=== PATIENT | male | born 1985 | race Caucasian/White ===

== ENCOUNTER → 2025-07-01 14:01 | Outpatient (CLI) | payer OTHER, SELFPAY ==
--- NOTE | 2025-07-01 14:07 | DI.RAD.S_ITS ---
PROCEDURE: XR CERVICAL SPINE 4V OR 5V INDICATIONS: NECK PAIN TECHNIQUE: 5 views of the cervical spine acquired. COMPARISON: None. FINDINGS: Bones: No fractures or dislocations to the T1 level. Oblique images demonstrate no bony foraminal stenoses. Minimal scattered areas of left foraminal narrowing. Soft tissues: No prevertebral soft tissue swelling. IMPRESSION: Minimal areas of foraminal narrowing, possibly positional. Otherwise, no significant degenerative change. Dictated by: Naa Vinson M.D. on 07/01/2025 at 15:35 Approved by: Naa Vinson M.D. on 07/01/2025 at 15:36
--- NOTE | 2025-07-01 14:51 | DI.RAD.S_ITS ---
PROCEDURE: XR LUMBAR SPINE MIN 4V INDICATIONS: BACK PAIN TECHNIQUE: 5 views of the lumbar spine were acquired, including bilateral oblique views. COMPARISON: None. FINDINGS: Bones: 5 nonrib-bearing vertebrae are present. There is minimal scattered retrolisthesis. Questionable minimal foraminal narrowing L5-S1. No vertebral body compression fractures. No suspicious bony lesions. Soft tissues: Overlying bowel gas pattern is normal. No suspicious soft tissue calcifications. Oblique images: No pars defects. IMPRESSION: Minimal questionable foraminal narrowing L5-S1. Dictated by: Naa Vinson M.D. on 07/01/2025 at 15:36 Approved by: Naa Vinson M.D. on 07/01/2025 at 15:37
== END ==
LOC: RAD 14:05
PROVIDERS: Referring Provider Physical Medicine & Rehabilitation; Visit Provider Physical Medicine & Rehabilitation
DX: M54.2 Cervicalgia (principal); M54.9 Dorsalgia, unspecified
CPT/HCPCS: 72050; 72110

== ENCOUNTER → 2025-07-15 15:43 | Outpatient (CLI) | payer OTHER, SELFPAY ==
--- NOTE | 2025-07-15 15:44 | DI.MRI.S_ITS ---
PROCEDURE: MR CERVICAL SPINE WO CON INDICATIONS: progressive cervical radiculopathy P s/p trauma TECHNIQUE: Noncontrast sagittal T1 spin echo and T2 fast spin echo, sagittal STIR, foraminal oblique sagittal T2 fast spin echo, and axial gradient echo or T2 fast spin echo through the cervical spine. COMPARISON: None. FINDINGS: Image quality: Excellent. Alignment and Curvature: There is normal bony alignment. Bone Marrow: Marrow demonstrates normal overall signal. Spinal Cord: Normal spinal cord size. Short-segment prominence of the central canal at C4 without adjacent cord compression. No cerebellar tonsillar herniation. Paraspinous Soft Tissues: No paravertebral masses. Prevertebral soft tissues are normal in thickness. C2-C3: Normal appearance. C3-C4: No spinal canal stenosis. Minimal bilateral neural foraminal stenosis due to uncovertebral greater than facet arthrosis. C4-C5: Normal appearance of the intervertebral disc. No spinal canal stenosis. Mild left neural foraminal stenosis due to uncovertebral and facet arthrosis. No right neural foraminal stenosis. C5-C6: Mild spinal canal stenosis due to degenerated disc osteophyte complex. Right moderate and left [id number] neural foraminal stenosis due to uncovertebral greater than facet arthrosis. C6-C7: Mildly desiccated and degenerated disc osteophyte complex which indents the anterior thecal sac but does not result in significant spinal canal stenosis. Mild bilateral neural foraminal stenosis due to uncovertebral greater than facet arthrosis. C7-T1: Normal appearance. IMPRESSION: 1. Mild spinal canal stenosis at C5-6. 2. Right moderate and left [id number] neural foraminal stenosis at C5-6. Dictated by: Jerome Lyles M.D. on 07/15/2025 at 17:26 Approved by: Jerome Lyles M.D. on 07/15/2025 at 17:31
--- NOTE | 2025-07-15 15:44 | DI.MRI.S_ITS ---
PROCEDURE: MR LUMBAR SPINE WO CON INDICATIONS: progressive LBP s/p trauma TECHNIQUE: Noncontrast sagittal T1 spin echo and T2 fast echo, sagittal STIR, and T2 fast spin echo through the lumbar spine. In cases with scoliosis, additional coronal T2 fast spin echo may be performed. COMPARISON: [facility], CR, XR LUMBAR SPINE MIN 4V, 07/01/2025, 14:52. FINDINGS: Image quality: Excellent. Alignment and Curvature: There is normal bony alignment. Bone Marrow: Marrow is of normal overall signal. No acute vertebral body compression fractures. Spinal Cord: Conus medullaris terminates at the L1 level. Visualized cord demonstrates normal signal and size. Paraspinous Soft Tissues: No paravertebral masses. T12-L1: Normal appearance. L1-L2: Normal appearance. L2-L3: Normal appearance. L3-L4: Mildly desiccated disc. Mild bilateral, right greater than left, lateral recess stenosis due to disc height loss, minimal ligamentum flavum thickening, and facet arthrosis. No spinal canal stenosis. No neural foraminal stenosis. L4-L5: Normal appearance. L5-S1: Broad-based, central to bilateral, right greater than left, subarticular disc protrusion which results in mild bilateral lateral recess stenosis recess stenosis. No central spinal canal or neural foraminal stenosis. IMPRESSION: Mild bilateral lateral recess stenosis at L3-4 and at L5-S1. Dictated by: Jerome Lyles M.D. on 07/15/2025 at 17:32 Approved by: Jerome Lyles M.D. on 07/15/2025 at 17:35
== END ==
LOC: MRI 15:43
PROVIDERS: Referring Provider Physical Medicine & Rehabilitation; Visit Provider Physical Medicine & Rehabilitation
DX: M54.12 Radiculopathy, cervical region (principal); M54.16 Radiculopathy, lumbar region; M48.02 Spinal stenosis, cervical region; M48.061 Spinal stenosis, lumbar region without neurogenic claudication; M48.07 Spinal stenosis, lumbosacral region; G95.0 Syringomyelia and syringobulbia; Z87.820 Personal history of traumatic brain injury
CPT/HCPCS: 72141; 72148

== ENCOUNTER 2025-07-23 09:15 | Outpatient (CLI) | payer OTHER, SELFPAY ==
[2025-07-23] VITALS (8 sets, daily range): BP systolic 112–138; BP diastolic 73–86; PULSE 68–83; RESP 14–22; TEMP 36.9; O2SAT 96–100
[2025-07-23] MEDS: MIDAZOLAM 2 MG/2 ML VIAL IV (10:03)
--- NOTE | 2025-07-23 10:23 | P.PCN_ITS ---
Date/Time/Diagnoses Date of procedure: 07/23/25 Time of procedure: 10:23 Pre-procedure diagnosis: 1. CERVICAL STENOSIS, 2. CERVICAL HNP WITH UPPER EXTREMITY RADICULAR FEATURES Post-procedure diagnosis: same Procedure Notes Procedure: 1. FLUORSCOPICALLY GUIDED CONTRAST CONTROLLED INTERLAMINAR EPIDURAL STEROID INJECTION - C6/7 TL AUTUMN Indications: Mati is referred for treatment of Cervical HNP with Upper Extremity Paresthesias. Physician: Porfirio Troncoso Total Fluoroscopy time (seconds): 30 Total sedation minutes: 15 Complications: none Procedure in detail & Post-procedure care: FINDINGS Cervical Stenosis due to disc deterioration and nerve root irritation and nerve root irritation DESCRIPTION OF PROCEDURE Fluoroscopically guided, contrast-controlled C6/7 translaminar epidural steroid injection with conscious sedation. Following review of allergy and review of potential side effects and complications, including, but not necessarily limited to, infection, allergic r eaction, local tissue breakdown, temporary as well as permanent nerve injury, stroke, paralysis, and possible , the patient indicated that patient understood and agreed to proceed. An informed consent document was signed by the patient, witnessed by a nurse, and placed in the patient's chart. Additionally, other treatment options including modalities, medications, and physical therapy were reviewed with the patient. After review of previous anaesthesic history and IV conscious sedation the patient was deemed safe to proceed with today?s procedure with IV conscious sedation as ASA class II designation. Safety time-out was performed to confirm patient ID, procedure to be performed and site of procedure. IV sedation was accomplished with a combination of 2mg of Versed administered by the RN after DO order, titrated to patient comfort during the course of the procedure while the patient remained responsive to all verbal commands. In the prone position, following sterile prep and drape of the cervical region, the C6/7 translaminar space was identified fluoroscopically. The skin was anesthetized via a 25-gauge 1.5-inch needle with 1% lidocaine solution. At this point, a 25-gauge, 2.5-inch short bevel spinal needle was atraumatically introduced and advanced under fluoroscopic guidance into epidural space at the C6/7 translaminar space. Depth was confirmed on lateral view. Radiological data, including multiple fluoroscopic views of the cervical spine, reveal a spinal needle at the C6/7 translaminar space. Lateral views then show placement of the needle in the epidural space. Subsequent views show contrast material flowing superiorly and inferiorly in the epidural space. DSA fluoroscopy with live contrast injection, once again, confirmed no vascular or intrathecal uptake. At this point, using loss of resistance technique with saline and air, the epidural space was entered. Following negative aspiration, injection of approximately 1.5 cc of [id number]-[id number] with live fluoroscopy in the AP view confirmed epidural flow in the epidural space without vascular or intrathecal uptake observed. Subsequently, a test dose of 1 cc of 1% lidocaine solution was injected and patient was observed for two minutes without signs or symptoms of complications, including abdominal pain, shortness of breath, bilateral upper or lower extremity weakness, nausea and vomiting, prior to steroid injection. At this point, 3cc or 30mg of dexamethasone was then injected without incident. The patient tolerated the procedure well without signs or symptoms of complications prior to being transferred to the recovery area for further monitoring, The patient was then transferred to the recovery area where they were observed for an appropriate period of time after the injection. The patient reported a VAS score of 6 prior to the procedure and a post-procedure VAS of 0. POST OP INSTRUCTIONS The patient was provided a Pain Log to continue to record their response to the target-specific procedure prior to follow-up visit with the referring provider. Additionally, specific post-injection care instructions and a contact number to our office were provided if concerns arise regarding possible complications associated with the procedure are suspected.
== END 2025-07-23 10:52 | disposition home or self-care (01) ==
LOC: RAD 09:15
PROVIDERS: Referring Provider Physical Medicine & Rehabilitation; Visit Provider Physical Medicine & Rehabilitation
DX: M48.02 Spinal stenosis, cervical region (principal); M50.123 Cervical disc disorder at C6-C7 level with radiculopathy
CPT/HCPCS: 62321; 99152; J1100; J2250